=== PATIENT | female | born 1955 | race Caucasian/White ===

== ENCOUNTER 2018-10-30 10:53 | Emergency (ER) | payer MEDICARE, OTHER ==
[2018-10-30 12:02] LABS: ADD MAN DIFF? NO
[2018-10-30 12:10] LABS: BASOPHILS % 0.4 % (0.0-2.0); EOSINOPHILS # 0.2 10^3/ul (0.0-0.5); EOSINOPHILS % 2.2 % (0.0-7.0); HEMATOCRIT 38.9 % (37.0-47.0); HEMOGLOBIN 12.9 g/dl (12.0-16.0); LYMPHOCYTES # 2.6 10^3/ul (0.8-2.9); LYMPHOCYTES % 26.9 % (15.0-51.0); MEAN CORPUSCULAR HEMOGLOBIN 28.2 pg (29.0-33.0); MEAN CORPUSCULAR HGB CONC 33.2 g/dl (32.0-37.0); MEAN CORPUSCULAR VOLUME 85.1 fl (82.0-101.0); MEAN PLATELET VOLUME 10.1 fl (7.4-10.4); MONOCYTE # 0.8 10^3/ul (0.3-0.9); MONOCYTES % 8.5 % (0.0-11.0); NEUTROPHILS % 61.4 % (39.0-77.0); PLATELET COUNT 288 10^3/UL (140-415); RED BLOOD COUNT 4.57 10^6/ul (4.20-5.40); RED CELL DISTRIBUTION WIDTH 13.2 % (11.5-14.5)
[2018-10-30 12:10] LABS: WHITE BLOOD COUNT 9.7 10^3/ul (4.8-10.8)
[2018-10-30] MEDS: KETOROLAC 30 MG INJ IV (12:13)
[2018-10-30 12:37] LABS: ANION GAP 12 (5-13); BLOOD UREA NITROGEN 20 mg/dl (7-20); CALCIUM 9.6 mg/dl (8.4-10.2); CARBON DIOXIDE 23 mmol/L (21-31); CHLORIDE 106 mmol/L (97-110); CREATININE 0.53 mg/dl (0.44-1.00); Estimated GFR > 60 mL/min (>60); GLUCOSE 104 mg/dl (70-220); POTASSIUM 3.8 mmol/L (3.5-5.1); SODIUM 141 mmol/L (135-144)
[2018-10-30 12:46] LABS: TROPONIN-I < 0.012 ng/ml (0.000-0.120)
== END 2018-10-30 13:55 | disposition home or self-care (01) ==
LOC: E/R 10:53
DX: R07.9 Chest pain, unspecified (principal); E11.9 Type 2 diabetes mellitus without complications; I10 Essential (primary) hypertension; Z79.84 Long term (current) use of oral hypoglycemic drugs; Z79.82 Long term (current) use of aspirin
CPT/HCPCS: 36415; 71045; 80048; 84484; 85025; 93005; 96374; 99285-25